=== PATIENT | male | born 2000 | race Caucasian/White ===

== ENCOUNTER 2024-08-28 09:01 | Outpatient (CLI) | payer BC ==
[2024-08-28 10:31] LABS: #Basophils 0.04 10x3/uL (0.0-0.2); #Eosinophils 0.16 10x3/uL (0.0-0.5); #Monocytes 0.77 10x3/uL (0.0-1.1); #Neutrophils 2.37 10x3/uL (1.5-8.4); %Basophils 0.7 % (0.0-2.0); %Monocytes 14.3 % (0.0-10.0); %Neutrophils 43.8 % (40.0-75.0); Hematocrit 42.9 % (38.8-50.0); Hemoglobin 14.4 g/dL (13.5-17.5); Mean Corpuscular HGB CONC 33.6 g/dL (32.0-36.0); Mean Corpuscular Hemoglobin 30.2 pg (27.0-33.0); Mean Corpuscular Volume 89.9 fL (81.2-95.1); Mean Platelet Volume 9.4 fL (7.4-10.4); Platelet Count 247 10x3/uL (150-450); RBC Distribution Width 11.9 % (11.5-14.5); Red Blood Cell (RBC) Count 4.77 10x6/uL (4.32-5.72); White Blood Cell (WBC) Count 5.4 10x3/uL (3.5-10.5)
[2024-08-28 10:52] LABS: Anion Gap 13 mmol/L (10-20); BUN (Urea Nitrogen) 17 mg/dL (8.9-20.6); Calc. Creatinine Clearance 0 mL/min (70-130); Calcium 9.7 mg/dL (7.8-10.44); Carbon Dioxide 26 mmol/L (22-29); Chloride 106 mmol/L (98-107); Estimated GFR 90; Glucose 91 mg/dL (70-105); Potassium 4.2 mmol/L (3.5-5.1); Sodium 141 mmol/L (136-145)
== END 2024-08-28 09:02 | disposition home or self-care (01) ==
LOC: CSHLAB 09:01
PROVIDERS: ATTEND Surgery
DX: Z01.812 Encounter for preprocedural laboratory examination (principal); L05.91 Pilonidal cyst without abscess
CPT/HCPCS: 80048; 85025

== ENCOUNTER 2024-08-30 11:18 | Day surgery (SDC) | payer BC, OTHER ==
[2024-08-28 09:24] VITALS: BMI 26.9
[2024-08-30] MEDS ORDERED: Bupivacaine/Epinephrine 0.25% 30 ML VIAL ONE (12:29)
[2024-08-30] MEDS ORDERED: CEFAZOLIN 2 GM VIAL ONE (12:29)
[2024-08-30] MEDS ORDERED: Midazolam HCl 2 mg/2 ml Vial ONE (13:56)
[2024-08-30] MEDS ORDERED: PROPOFOL 20 ML ONE (13:56)
[2024-08-30] MEDS ORDERED: fentaNYL 50 mcg/mL 1 mL Vial ONE ×2 (13:56→15:06)
[2024-08-30] MEDS ORDERED: Rocuronium Bromide 10 MG/ML (10ML VIAL) ONE (13:57)
[2024-08-30] MEDS ORDERED: Lidocaine 1% PF 5 ML VIAL ONE (13:57)
[2024-08-30] MEDS ORDERED: Dexamethasone 20 MG/5 ML VIAL ONE (14:15)
[2024-08-30] MEDS ORDERED: Ondansetron PF 4 MG/2 ML Vial ONE (14:15)
[2024-08-30] MEDS ORDERED: SUGAMMADEX SODIUM 200 MG/2 ML VIAL ONE ×2 (14:31)
[2024-08-30] MEDS ORDERED: HYDROcodone/Acetaminophen 5/325 mg Tablet ONE (15:25)
== END 2024-08-30 15:56 | disposition home or self-care (01) ==
LOC: CSHSDC 11:18
PROVIDERS: ATTEND Surgery
PROC: 0JB90ZZ Excision of Buttock Subcutaneous Tissue and Fascia, Open Approach (ICD-10-PCS; principal; 2024-08-30)
DX: L05.91 Pilonidal cyst without abscess (principal)
CPT/HCPCS: 88304; J1100; J2250; J2405; J2704; J3010